=== PATIENT | female | born 1980 | race Caucasian/White ===

== ENCOUNTER 2021-03-28 16:42 | Emergency (ER) | payer SELFPAY ==
[2021-03-28 17:08] LABS: #Basophils 0.1 thou/uL (0.0-0.2); #Eosinphils 0.1 thou/uL (0.0-0.7); #Lymphocytes 3.2 thou/uL (1.20-3.40); #Monocytes 0.5 thou/uL (0.11-0.59); #Neutrophils 3.1 thou/uL (1.40-6.50); %Basophils 0.8 % (0.0-1.0); %Eosinophils 0.9 % (0.0-10.0); %Lymphocytes 46.2 % (21.0-51.0); %Monocytes 7.1 % (0.0-10.0); %Neutrophils 44.9 % (42.0-75.0); Hemoglobin 13.1 g/dL (12.0-16.0); Mean Corpuscular HGB CONC 33.3 g/dL (32.0-36.0); Mean Corpuscular Hemoglobin 32.7 pg (27.0-31.0); Mean Corpuscular Volume 98.2 fL (78.0-98.0); Mean Platelet Volume 7.6 fL (7.4-10.4); Platelet Count 140 thou/uL (130-400); RBC Distribution Width 12.3 % (11.5-14.5)
[2021-03-28 17:14] LABS: ALT (SGPT) 12 U/L (8-55); AST (SGOT) 18 U/L (5-34); Albumin 4.4 g/dL (3.5-5.0); Alkaline Phosphatase 60 U/L (40-110); Anion Gap 12 mmol/L (10-20); BUN (Urea Nitrogen) 10 mg/dL (7.0-18.7); Bilirubin, Total 0.3 mg/dL (0.2-1.2); CK (CPK) 122 U/L (29-168); Calc. Creatinine Clearance 0 mL/min (70-130); Calcium 9.3 mg/dL (7.8-10.44); Carbon Dioxide 27 mmol/L (22-29); Chloride 103 mmol/L (98-107); Globulin 3.1 g/dL (2.4-3.5); Glucose 103 mg/dL (70-105); Lipase 20 U/L (8-78); Potassium 3.4 mmol/L (3.5-5.1); Protein, Total 7.5 g/dL (6.0-8.3); Sodium 139 mmol/L (136-145)
[2021-03-28] MEDS ORDERED: Ketorolac Tromethamine 30 MG/ML VIAL ONE (18:04)
== END 2021-03-28 18:22 | disposition home or self-care (01) ==
LOC: NAV ERS 16:42
DX: R07.89 Other chest pain (principal)
CPT/HCPCS: 71045; 80053; 82550; 83690; 84484; 85025; 93005; 96374; J1885

== ENCOUNTER 2023-10-31 11:05 | Emergency (ER) | payer SELFPAY ==
[2023-10-31] MEDS ORDERED: Ondansetron PF 4 MG/2 ML Vial ONE (11:44)
[2023-10-31] MEDS ORDERED: Sodium Chloride 0.9% 1,000 ML ONE (11:44)
[2023-10-31 12:03] LABS: #Eosinphils 0.1 thou/uL (0.0-0.7); #Lymphocytes 0.9 thou/uL (1.20-3.40); #Monocytes 0.5 thou/uL (0.11-0.59); #Neutrophils 4.4 thou/uL (1.40-6.50); %Basophils 0.7 % (0.0-1.0); %Eosinophils 1.6 % (0.0-10.0); %Monocytes 8.7 % (0.0-10.0); %Neutrophils 73.9 % (42.0-75.0); Hematocrit 37.8 % (36.0-47.0); Mean Corpuscular HGB CONC 31.7 g/dL (32.0-36.0); Mean Corpuscular Hemoglobin 28.4 pg (27.0-31.0); Mean Corpuscular Volume 89.5 fl (78.0-98.0); Mean Platelet Volume 8.7 fL (7.4-10.4); Platelet Count 122 10x3/uL (130-400); RBC Distribution Width 11.8 % (11.5-14.5); Red Blood Cell (RBC) Count 4.22 mill/uL (4.20-5.40)
[2023-10-31 12:04] LABS: ALT (SGPT) 17 U/L (8-55); AST (SGOT) 20 U/L (5-34); Albumin 4.1 g/dL (3.5-5.0); Alkaline Phosphatase 57 U/L (40-110); Anion Gap 16 mmol/L (10-20); BUN (Urea Nitrogen) 9 mg/dL (7.0-18.7); Bilirubin, Total 0.3 mg/dL (0.2-1.2); Calc. Creatinine Clearance 0 mL/min (70-130); Calcium 8.8 mg/dL (7.8-10.44); Carbon Dioxide 22 mmol/L (22-29); Chloride 104 mmol/L (98-107); Estimated GFR 104; Globulin 3.2 g/dL (2.4-3.5); Glucose 108 mg/dL (70-105); Lipase 17 U/L (8-78); Magnesium 1.8 mg/dL (1.6-2.6); Potassium 3.7 mmol/L (3.5-5.1); Protein, Total 7.3 g/dL (6.0-8.3); Sodium 138 mmol/L (136-145)
[2023-10-31] MEDS ORDERED: Dicyclomine 20 MG TAB ONE (13:45)
== END 2023-10-31 14:00 | disposition home or self-care (01) ==
LOC: NAV ERS 11:05
DX: A09 Infectious gastroenteritis and colitis, unspecified (principal); R11.2 Nausea with vomiting, unspecified
CPT/HCPCS: 74177; 80053; 83690; 83735; 85025; 96361; 96374; J2405; J7050